=== PATIENT | male | born 1985 | race Hispanic/Latino ===

== ENCOUNTER 2019-11-17 05:49 | Day surgery (SDC) | payer OTHER ==
[2019-11-14 09:37] LABS: BASOPHILS % (AUTO) 0.7 % (0.0-5.0); EOSINOPHILS % (AUTO) 2.3 % (0.0-8.0); HEMATOCRIT 32.3 % (42-54); LYMPHOCYTES % (AUTO) 18.7 % (21.0-51.0); MEAN CORPUSCULAR HEMOGLOBIN 29.6 pg (27.0-33.0); MEAN CORPUSCULAR HGB CONC 29.7 g/dL (32.0-36.0); MEAN CORPUSCULAR VOLUME 99.7 fL (79-99); MONOCYTES % (AUTO) 8.9 % (3.0-13.0); NEUTROPHILS % (AUTO) 68.5 % (40.0-77.0); PLATELET COUNT (AUTO) 427 K/uL (130-400); RED BLOOD CELL COUNT(AUTO) 3.24 MIL/uL (4.50-6.20)
[2019-11-14 09:43] LABS: INR 0.97 (0.85-1.15); PARTIAL THROMBOPLASTIN TIME 28.1 SEC (26.3-35.5); PROTHROMBIN TIME 10.5 SEC (9.6-11.6)
[2019-11-14 09:46] LABS: ALBUMIN 3.6 g/dL (3.5-5.0); BILIRUBIN,TOTAL 0.4 mg/dL (0.2-1.0); CREATININE 7.7 mg/dL (0.5-1.5); TOTAL PROTEIN, SERUM 7.7 g/dL (6.0-8.3)
[2019-11-14 09:48] LABS: POTASSIUM 6.1 mmol/L (3.5-5.1)
--- NOTE | 2019-11-14 10:00 | NUR ---
LABS ALL ABNORMAL LABS REPORTED TO DR. BOWLING, ORDERS RECEIVED TO REPEAT K+ LEVEL DAY OF SURGERY
[2019-11-14 10:14] VITALS: BP 154/86
--- NOTE | 2019-11-14 11:11 | NUR ---
INSULIN PUMP PER DR. HUANG PATIENT TO DECREASE INSULIN PUMP TO 0.5 UNITS /HR NIGHT BEFORE SURGERY, PT WAS INSTRUCTED AND HE VERBALIZED UNDERSTANDING.
[2019-11-17] VITALS (17 sets, daily range): BP systolic 131–180; BP diastolic 73–94
[~2019-11-17] VITALS: Ht 172.7 cm; Wt 73.6 kg
[~2019-11-17 05:49] MED LIST: AMLO-257 PO; AMLO-258 PO; ASPI-1443 PO; FERR325T22 PO; FOLI1TAB85 PO; LISI-613 PO; NOVOLOG; OMEP20CA12 PO
[2019-11-17] MEDS ORDERED: SODIUM CHLORIDE 0.9% 1000ML 1,000 ML IV ONE (06:58)
[2019-11-17] MEDS ORDERED: KETAMINE 50MG/ML SYRINGE 50 MG/ML DISP.SYRIN IV ONE (07:26)
[2019-11-17] MEDS ORDERED: LIDOCAINE PF 2% 5ML ABBOJECT ONE (07:29)
[2019-11-17] MEDS ORDERED: ONDANSETRON HCL 4 MG/2 ML VIAL ONE ×2 (07:29→09:48)
[2019-11-17] MEDS ORDERED: DEXAMETHASONE SOD PHOSPHATE 10MG/ML 1ML VIAL ONE (07:29)
[2019-11-17] MEDS ORDERED: GLYCOPYRROLATE 1 MG/5 ML SYRINGE ONE (07:29)
[2019-11-17] MEDS ORDERED: PROPOFOL 10 MG/ML 20ML VIAL IV ONE (07:29)
[2019-11-17] MEDS ORDERED: FENTANYL CITRATE PF 50 MCG/1 ML 2ML VIAL ONE (07:29)
[2019-11-17] MEDS ORDERED: NEOSTIGMINE 5MG/5ML SYR IV ONE (07:30)
[2019-11-17] MEDS ORDERED: ROCURONIUM 10MG/1ML SYR 10 MG/ML ML ONE (07:30)
[2019-11-17] MEDS ORDERED: MIDAZOLAM HCL 1 MG/ML 2ML VIAL ONE (07:30)
--- NOTE | 2019-11-17 07:40 | NUR ---
PRE OP PT HAS OLD SCARS THROUGHOUT BODY, INSULIN PUMP PRESENT TO LEFT ABDOMEN, INSERTION SITE FREE FROM S/S OF INFECTION. PATIENT HAD INSULIN PUMP AT 0.8, HE CHANGED IT TO 0.5 UNITS.
[2019-11-17] MEDS ORDERED: NOREPINEPHRINE BITARTRATE 1 MG/1 ML ML IV ONE (08:07)
[2019-11-17] MEDS ORDERED: EPINEPHRINE 1 MG/ML AMPULE ONE (08:07)
[2019-11-17] MEDS ORDERED: CALC668T PO (08:11)
[2019-11-17] MEDS ORDERED: CEFUROXIME SODIUM 1.5 GM VIAL ONE (08:14)
--- NOTE | 2019-11-17 08:27 | NUR ---
POTENTIAL FOR INFECTION LEFT ARM SHAVED BY ARNALDO LINDER, FOLLOWED BY WIPING WITH NANCY.
--- NOTE | 2019-11-17 08:35 | NUR ---
FLUID INTAKE: IV NS 300CC INFUSED ORDERED PER SHEELA PEREZ CRNA.
[2019-11-17] MEDS ORDERED: EPHEDRINE SULFATE 50 MG/ML AMPULE ONE (09:01)
[2019-11-17] MEDS ORDERED: CEFAZOLIN SODIUM 1 GM VIAL ONE (09:05)
[2019-11-17] MEDS ORDERED: ACETAMINOPHEN 325 MG TAB PO PRN (10:45)
[2019-11-17] MEDS ORDERED: TRAMADOL HCL 50 MG TABLET PO PRN ×2 (10:45)
== END 2019-11-17 12:40 | disposition home or self-care (01) ==
LOC: DAH 05:49
PROVIDERS: ATTEND Thoracic Surgery (Cardiothoracic Vascular Surgery)
DX: I12.0 Hypertensive chronic kidney disease with stage 5 chronic kidney disease or end stage renal disease (principal); E11.22 Type 2 diabetes mellitus with diabetic chronic kidney disease; N18.6 End stage renal disease; G47.00 Insomnia, unspecified; Z79.82 Long term (current) use of aspirin; Z79.899 Other long term (current) drug therapy; Z87.891 Personal history of nicotine dependence; Z99.2 Dependence on renal dialysis; Z98.890 Other specified postprocedural states; Z82.49 Family history of ischemic heart disease and other diseases of the circulatory system; Z83.3 Family history of diabetes mellitus
CPT/HCPCS: 36415 ×2; 36821; 71045; 80053; 82948 ×2; 83036; 84132; 85025; 85610; 85730; 93005; A4213; A4215; A4221; A4222; A4223; A4452; A4649 ×4; A4663; A4930 ×2; A5120; C1713 ×2; J0171; J0690; J0697; J1100; J1644; J2001; J2250; J2405 ×2; J2704; J2710; J3010; J3490 ×4; J7030 ×2; J7040

== ENCOUNTER → 2020-08-09 | Outpatient (CLI) | payer OTHER ==
[~2020-08-09] MED LIST changes: +CALC668T PO; +GLYCOPYRROLATE 0.2 MG/ML 5 ML VIAL ONE; +PROPOFOL 10 MG/ML 20ML VIAL IV ONE; +SODIUM CHLORIDE 0.9% 1000ML 1,000 ML IV ONE
== END | disposition home or self-care (01) ==
LOC: DAH 10:00 → EDSTATUS 08-10 10:05
PROVIDERS: ATTEND Internal Medicine Gastroenterology
DX: Z01.818 Encounter for other preprocedural examination (principal); R10.11 Right upper quadrant pain; Z20.828 Contact with and (suspected) exposure to other viral communicable diseases; R12 Heartburn; R14.2 Eructation; R19.7 Diarrhea, unspecified; R19.4 Change in bowel habit; Z80.0 Family history of malignant neoplasm of digestive organs
CPT/HCPCS: 87426; J2704; J3490; J7030

== ENCOUNTER → 2021-01-25 | Outpatient (CLI) | payer OTHER ==
[~2021-01-25] MED LIST changes: -GLYCOPYRROLATE 0.2 MG/ML 5 ML VIAL ONE; +HONEY 1 APPL/ML TUBE TP ONE; +LIDOCAINE HCL 4% LTA SOL 4 ML VIAL TP ONE; -LISI-613 PO; +LISI20TA24 PO; -PROPOFOL 10 MG/ML 20ML VIAL IV ONE; -SODIUM CHLORIDE 0.9% 1000ML 1,000 ML IV ONE
== END | disposition home or self-care (01) ==
LOC: WHH 13:12
PROVIDERS: ATTEND Family Medicine
DX: E10.622 Type 1 diabetes mellitus with other skin ulcer (principal); L98.492 Non-pressure chronic ulcer of skin of other sites with fat layer exposed; S61.207A Unspecified open wound of left little finger without damage to nail, initial encounter; E10.22 Type 1 diabetes mellitus with diabetic chronic kidney disease; I13.11 Hypertensive heart and chronic kidney disease without heart failure, with stage 5 chronic kidney disease, or end stage renal disease; N18.6 End stage renal disease; Z99.2 Dependence on renal dialysis; X58.XXXA Exposure to other specified factors, initial encounter; Y93.89 Activity, other specified; Y92.89 Other specified places as the place of occurrence of the external cause; Y99.8 Other external cause status
CPT/HCPCS: 11042; 36415; 84134; 85651; 86140; 87070; A4450

== ENCOUNTER → 2021-02-01 | Outpatient (CLI) | payer OTHER | END | disposition home or self-care (01) | LOC: WHH 12:58 | PROVIDERS: ATTEND Family Medicine | DX: E10.621 Type 1 diabetes mellitus with foot ulcer (principal); L98.492 Non-pressure chronic ulcer of skin of other sites with fat layer exposed; S61.207D Unspecified open wound of left little finger without damage to nail, subsequent encounter; E10.22 Type 1 diabetes mellitus with diabetic chronic kidney disease; I13.11 Hypertensive heart and chronic kidney disease without heart failure, with stage 5 chronic kidney disease, or end stage renal disease; N18.6 End stage renal disease; Z99.2 Dependence on renal dialysis; X58.XXXD Exposure to other specified factors, subsequent encounter | CPT/HCPCS: 11042; 82948 ==

== ENCOUNTER → 2021-02-08 | Outpatient (CLI) | payer OTHER ==
[~2021-02-08] MED LIST changes: -HONEY 1 APPL/ML TUBE TP ONE
== END | disposition home or self-care (01) ==
LOC: WHH 13:21
PROVIDERS: ATTEND Family Medicine
DX: S61.201D Unspecified open wound of left index finger without damage to nail, subsequent encounter (principal); E10.621 Type 1 diabetes mellitus with foot ulcer; L98.492 Non-pressure chronic ulcer of skin of other sites with fat layer exposed; E10.22 Type 1 diabetes mellitus with diabetic chronic kidney disease; I13.11 Hypertensive heart and chronic kidney disease without heart failure, with stage 5 chronic kidney disease, or end stage renal disease; N18.6 End stage renal disease; Z99.2 Dependence on renal dialysis; X58.XXXD Exposure to other specified factors, subsequent encounter
CPT/HCPCS: 11042

== ENCOUNTER → 2021-02-15 | Outpatient (CLI) | payer OTHER | END | disposition home or self-care (01) | LOC: WHH 13:21 | PROVIDERS: ATTEND Family Medicine | DX: S61.201D Unspecified open wound of left index finger without damage to nail, subsequent encounter (principal); E10.622 Type 1 diabetes mellitus with other skin ulcer; L98.492 Non-pressure chronic ulcer of skin of other sites with fat layer exposed; E10.22 Type 1 diabetes mellitus with diabetic chronic kidney disease; I13.11 Hypertensive heart and chronic kidney disease without heart failure, with stage 5 chronic kidney disease, or end stage renal disease; N18.6 End stage renal disease; Z99.2 Dependence on renal dialysis; X58.XXXD Exposure to other specified factors, subsequent encounter | CPT/HCPCS: 11042; A4450 ==

== ENCOUNTER → 2021-03-01 | Outpatient (CLI) | payer OTHER | END | disposition home or self-care (01) | LOC: WHH 13:33 | PROVIDERS: ATTEND Family Medicine | DX: S61.201D Unspecified open wound of left index finger without damage to nail, subsequent encounter (principal); E10.622 Type 1 diabetes mellitus with other skin ulcer; L98.492 Non-pressure chronic ulcer of skin of other sites with fat layer exposed; E10.22 Type 1 diabetes mellitus with diabetic chronic kidney disease; I13.11 Hypertensive heart and chronic kidney disease without heart failure, with stage 5 chronic kidney disease, or end stage renal disease; N18.6 End stage renal disease; Z99.2 Dependence on renal dialysis; X58.XXXD Exposure to other specified factors, subsequent encounter | CPT/HCPCS: 11042; A6248 ==

== ENCOUNTER 2021-03-16 07:21 | Inpatient (IN) | payer OTHER ==
[2021-03-16] VITALS (28 sets, daily range): BP systolic 105–202; BP diastolic 46–103
[~2021-03-16] VITALS: Ht 172.7 cm; Wt 81.5 kg
[~2021-03-16 07:21] MED LIST changes: -LIDOCAINE HCL 4% LTA SOL 4 ML VIAL TP ONE
[2021-03-16 07:42] LABS: BASOPHILS % (AUTO) 0.4 % (0.0-5.0); EOSINOPHILS % (AUTO) 0.1 % (0.0-8.0); HEMATOCRIT 24.2 % (42-54); LYMPHOCYTES % (AUTO) 4.1 % (21.0-51.0); MEAN CORPUSCULAR HEMOGLOBIN 27.9 pg (27.0-33.0); MONOCYTES % (AUTO) 5.3 % (3.0-13.0); NEUTROPHILS % (AUTO) 88.8 % (40.0-77.0); NUCLEATED RED BLOOD CELLS 0.1 % (0.0-0.19); PLATELET COUNT (AUTO) 459 K/uL (130-400); RED BLOOD CELL COUNT(AUTO) 2.69 MIL/uL (4.50-6.20); RED CELL DISTRIBUTION WIDTH 19.9 % (11.0-15.5); WHITE BLOOD COUNT (AUTO) 20.2 K/uL (4.8-10.8)
[2021-03-16 08:14] LABS: CARBON DIOXIDE 20 mmol/L (21-32); CHLORIDE 95 mmol/L (101-111); GLOMERULAR FILTR. RATE CALC 4 mL/min (>60); GLUCOSE,RANDOM 298 mg/dL (70-105); POTASSIUM 5.1 mmol/L (3.5-5.1); SODIUM SERUM 136 mmol/L (136-145); UREA NITROGEN, BLOOD 57 mg/dL (7-18)
[2021-03-16 08:17] LABS: CREATININE 14.7 mg/dL (0.5-1.5)
[2021-03-16 08:39] LABS: ALANINE AMINOTRANSFERASE 16 U/L (12-78); ASPARTATE AMINOTRANSFERASE 25 U/L (10-37); BILIRUBIN,TOTAL 0.5 mg/dL (0.2-1.0); MYOGLOBIN 1078 ng/mL (10-92); TOTAL PROTEIN, SERUM 6.7 g/dL (6.0-8.3); TROPONIN I < 0.04 ng/mL (0.00-0.06)
[2021-03-16 08:42] LABS: CREATINE KINASE, TOTAL 834 U/L (21-232)
[2021-03-16] MEDS ORDERED: FUROSEMIDE 100MG VIAL IVP ONE (09:30)
[2021-03-16] MEDS ORDERED: CEFTRIAXONE 1G VIAL IVP ONE (09:30)
[2021-03-16] MEDS ORDERED: FUROSEMIDE 20MG VIAL ONE (09:46)
[2021-03-16] MEDS ORDERED: 0.9%NACL 100ML 100 ML ONE (09:47)
[2021-03-16] MEDS ORDERED: FUROSEMIDE 40MG VIAL ONE (09:47)
[2021-03-16] MEDS ORDERED: LACTULOSE 20 GM/30 ML UDCUP PO PRN (10:00)
[2021-03-16] MEDS ORDERED: DOXYCYCLINE 100MG+NS 250ML 250 ML IV SCH (10:00)
[2021-03-16] MEDS ORDERED: NITROGLYCERIN 0.4 MG SL TAB SL PRN (10:00)
[2021-03-16] MEDS ORDERED: ONDANSETRON 4MG INJ IV PRN (10:00)
[2021-03-16] MEDS ORDERED: VANCOMYCIN PROTOCOL PER PHARMACY IV PRN (10:00)
[2021-03-16] MEDS ORDERED: ACETAMINOPHEN 325 MG TAB PO PRN (10:00)
[2021-03-16 10:26] LABS: RETICULOCYTE % (AUTO) 2.6 % (0.42-2.23)
[2021-03-16] MEDS ORDERED: FAMOTIDINE 20MG VIAL IV SCH (10:27)
[2021-03-16] MEDS ORDERED: VANCOMYCIN KIT 250 ML IV SCH (10:28)
[2021-03-16 10:36] LABS: INR 1.07 (0.85-1.15); PROTHROMBIN TIME 11.6 SEC (9.6-11.6)
[2021-03-16 10:37] LABS: PARTIAL THROMBOPLASTIN TIME 30.4 SEC (26.3-35.5)
[2021-03-16 10:46] LABS: HEMOGLOBIN A1C 7.7 % (4.0-6.0)
[2021-03-16 10:47] LABS: % IRON SATURATION 13.6 % (30-44)
[2021-03-16 10:56] LABS: THYROID STIMULATING HORMONE 1.29 uIU/mL (0.36-3.74)
[2021-03-16 10:57] LABS: AMMONIA < 3 umol/L (11-32)
[2021-03-16] MEDS: MEROPENEM 500 MG VIAL IV SCH ×2 (11:33→18:00)
[2021-03-16] MEDS ORDERED: HYDRALAZINE 20MG/ML VIAL ONE (11:53)
[2021-03-16] MEDS: SODIUM CHLORIDE 3% FOR INHALATION 4 ML/AMP VIAL.NEB IH SCH ×2 (12:00→18:00)
[2021-03-16] MEDS ORDERED: MIDAZOLAM HCL 1 MG/ML 2ML VIAL ONE (12:17)
[2021-03-16] MEDS ORDERED: PROPOFOL 1000 MG/100 ML 100 ML IV ONE ×2 (12:18→16:59)
[2021-03-16] MEDS ORDERED: MORPHINE 4 MG SYG ONE (13:44)
[2021-03-16] MEDS ORDERED: VECURONIUM BROMIDE 10 MG ML IV ONE (14:08)
[2021-03-16 15:01] LABS: ABG BASE EXCESS -6.9 mmol/L (-2.0-3.0); ABG HCO3 18.5 mmol/L (21.0-28.0); ABG PCO2 37 mmHg (35-48)
[2021-03-16 15:15] LABS: ABG BASE EXCESS -6.8 mmol/L (-2.0-3.0); ABG HCO3 16.5 mmol/L (21.0-28.0); ABG OXYGEN SATURATION 97.1 % (95.0-99.0); ABG PCO2 25 mmHg (35-48)
[2021-03-16] MEDS ORDERED: ACETAMINOPHEN 650 MG SUPPOSITORY RC ONE (16:16)
[2021-03-16] MEDS ORDERED: FENTANYL 2500MCG+NS 250ML 250 ML IV ONE (16:37)
[2021-03-16 17:25] LABS: BASOPHILS % (AUTO) 0.2 % (0.0-5.0); LYMPHOCYTES % (AUTO) 2.1 % (21.0-51.0); MEAN CORPUSCULAR HEMOGLOBIN 28.6 pg (27.0-33.0); MEAN CORPUSCULAR HGB CONC 31.5 g/dL (32.0-36.0); MEAN CORPUSCULAR VOLUME 90.6 fL (79-99); MONOCYTES % (AUTO) 4.7 % (3.0-13.0); NEUTROPHILS % (AUTO) 91.2 % (40.0-77.0); NUCLEATED RED BLOOD CELLS 0.2 % (0.0-0.19); PLATELET COUNT (AUTO) 406 K/uL (130-400); RED BLOOD CELL COUNT(AUTO) 2.24 MIL/uL (4.50-6.20); RED CELL DISTRIBUTION WIDTH 19.5 % (11.0-15.5); WHITE BLOOD COUNT (AUTO) 21.5 K/uL (4.8-10.8)
[2021-03-16] MEDS: HEPARIN 5,000 UNIT VIAL SQ SCH (17:30)
[2021-03-16] MEDS: PHARMACY COMMUNICATION MISC SCH ×2 (17:30→21:30)
[2021-03-16 17:39] LABS: INR 1.1 (0.85-1.15); PROTHROMBIN TIME 11.9 SEC (9.6-11.6)
[2021-03-16 17:41] LABS: PARTIAL THROMBOPLASTIN TIME 28.6 SEC (26.3-35.5)
[2021-03-16 17:47] LABS: PHOSPHORUS 8.2 mg/dL (2.5-4.9)
[2021-03-16 17:55] LABS: CREATININE 15.3 mg/dL (0.5-1.5)
[2021-03-16] MEDS ORDERED: INSULIN HUMULIN R 100 UNIT/ML 3ML ONE (18:12)
[2021-03-16 18:19] LABS: HEMATOCRIT 20.3 % (42-54)
[2021-03-16 18:56] LABS: MAGNESIUM 1.9 mg/dL (1.80-2.40)
[2021-03-16] MEDS: LINEZOLID 600 MG/ISO-OSM 300 ML IV SCH (22:10)
[2021-03-17] VITALS (38 sets, daily range): BP systolic 101–159; BP diastolic 46–77
[2021-03-17] MEDS ORDERED: PROPOFOL 1000 MG/100 ML 100 ML IV ONE ×2 (00:01→04:17)
[2021-03-17] MEDS: FENTANYL 2500MCG+NS 250ML 250 ML IV SCH ×2 (00:28→12:12)
[2021-03-17] MEDS: PHARMACY COMMUNICATION MISC SCH ×2 (01:30→05:30)
[2021-03-17] MEDS: HEPARIN 5,000 UNIT VIAL SQ SCH ×3 (01:33→17:55)
[2021-03-17] MEDS: MEROPENEM 500 MG VIAL IV SCH ×2 (01:34→21:16)
[2021-03-17] MEDS: INSULIN HUMULIN R 100 UNIT/ML 3ML SQ SCH ×5 (01:34→21:00)
[2021-03-17 05:14] LABS: ABG BASE EXCESS 1.2 mmol/L (-2.0-3.0); ABG HCO3 20.4 mmol/L (21.0-28.0); ABG OXYGEN SATURATION 99.8 % (95.0-99.0); ABG PCO2 21 mmHg (35-48)
[2021-03-17 05:37] LABS: BASOPHILS % (AUTO) 0.3 % (0.0-5.0); EOSINOPHILS % (AUTO) 0.3 % (0.0-8.0); LYMPHOCYTES % (AUTO) 8.5 % (21.0-51.0); MEAN CORPUSCULAR HEMOGLOBIN 28.5 pg (27.0-33.0); MEAN CORPUSCULAR HGB CONC 32.7 g/dL (32.0-36.0); MONOCYTES % (AUTO) 7.6 % (3.0-13.0); NEUTROPHILS % (AUTO) 81.9 % (40.0-77.0); NUCLEATED RED BLOOD CELLS 0.2 % (0.0-0.19); PLATELET COUNT (AUTO) 410 K/uL (130-400); RED BLOOD CELL COUNT(AUTO) 2.53 MIL/uL (4.50-6.20); WHITE BLOOD COUNT (AUTO) 15.5 K/uL (4.8-10.8)
[2021-03-17] MEDS: LINEZOLID 600 MG/ISO-OSM 300 ML IV SCH ×2 (05:41→17:51)
[2021-03-17 05:58] LABS: ALBUMIN 1.7 g/dL (3.5-5.0); BILIRUBIN,TOTAL 0.3 mg/dL (0.2-1.0); PHOSPHORUS 6.5 mg/dL (2.5-4.9); POTASSIUM 3.9 mmol/L (3.5-5.1); TOTAL PROTEIN, SERUM 6.1 g/dL (6.0-8.3)
[2021-03-17 06:14] LABS: CREATININE 11.6 mg/dL (0.5-1.5)
[2021-03-17] MEDS: PROPOFOL 1000 MG/100 ML IV PRN ×4 (08:10→20:50)
[2021-03-17 08:34] LABS: ABG BASE EXCESS 1.3 mmol/L (-2.0-3.0); ABG HCO3 24.7 mmol/L (21.0-28.0); ABG OXYGEN SATURATION 99.6 % (95.0-99.0); ABG PCO2 36 mmHg (35-48)
[2021-03-17] MEDS ORDERED: RENAL DOSE IV SCH (09:30)
[2021-03-17] MEDS ORDERED: EPOETIN ALFA-EPBX (ESRD) 10,000 UNIT/ML VIAL SQ SCH (09:30)
[2021-03-17] MEDS ORDERED: PHARMACY COMMUNICATION MISC SCH (09:30)
[2021-03-17] MEDS ORDERED: COMPOUND IV MISC 1 EACH IVSOLN MISC PRN (10:00)
[2021-03-17 15:51] LABS: POTASSIUM 4.4 mmol/L (3.5-5.1)
[2021-03-17 16:00] LABS: CREATININE 11.9 mg/dL (0.5-1.5)
[2021-03-17] MEDS: INSULIN GLARGINE 100 UNITS/ML 10 ML VIAL SQ SCH (21:00)
[2021-03-18] VITALS (45 sets, daily range): BP systolic 130–233; BP diastolic 57–117
[2021-03-18] MEDS: PROPOFOL 1000 MG/100 ML IV PRN ×2 (01:14→05:13)
[2021-03-18] MEDS: HEPARIN 5,000 UNIT VIAL SQ SCH ×3 (01:15→16:51)
[2021-03-18 04:04] LABS: ALBUMIN 1.4 g/dL (3.5-5.0); BILIRUBIN,TOTAL 0.4 mg/dL (0.2-1.0); POTASSIUM 4.9 mmol/L (3.5-5.1); TOTAL PROTEIN, SERUM 5.4 g/dL (6.0-8.3)
[2021-03-18 04:06] LABS: CREATININE 12.9 mg/dL (0.5-1.5)
[2021-03-18] MEDS: LINEZOLID 600 MG/ISO-OSM 300 ML IV SCH ×2 (05:12→16:51)
[2021-03-18 05:13] LABS: BASOPHILS % (AUTO) 0.7 % (0.0-5.0); EOSINOPHILS % (AUTO) 5.3 % (0.0-8.0); LYMPHOCYTES % (AUTO) 20.5 % (21.0-51.0); MEAN CORPUSCULAR HEMOGLOBIN 28.5 pg (27.0-33.0); MEAN CORPUSCULAR HGB CONC 31.4 g/dL (32.0-36.0); MEAN CORPUSCULAR VOLUME 90.9 fL (79-99); NEUTROPHILS % (AUTO) 64.1 % (40.0-77.0); PLATELET COUNT (AUTO) 393 K/uL (130-400); RED BLOOD CELL COUNT(AUTO) 2.42 MIL/uL (4.50-6.20); RED CELL DISTRIBUTION WIDTH 18.5 % (11.0-15.5); WHITE BLOOD COUNT (AUTO) 9.7 K/uL (4.8-10.8)
[2021-03-18] MEDS: FENTANYL 2500MCG+NS 250ML 250 ML IV SCH (05:14)
[2021-03-18] MEDS: INSULIN HUMULIN R 100 UNIT/ML 3ML SQ SCH ×4 (06:50→21:14)
[2021-03-18 07:16] LABS: HEPATITIS Bs ANTIGEN SCREEN P Negative (Negative)
[2021-03-18] MEDS: ZINC SULFATE 220 CAPSULE PO SCH (08:08)
[2021-03-18] MEDS: ASCORBIC ACID 500 MG TAB PO SCH (08:08)
[2021-03-18] MEDS ORDERED: HYDRALAZINE 20MG/ML VIAL ONE (08:18)
[2021-03-18] MEDS ORDERED: HYDRALAZINE 20MG/ML VIAL IV SCH (08:30)
[2021-03-18] MEDS ORDERED: 0.9%NACL 1000ML 1,000 ML IV ONE (09:16)
[2021-03-18] MEDS: LABETALOL 20MG VIAL IV PRN ×2 (10:00→14:31)
[2021-03-18] MEDS: IRON SUCROSE COMPLEX 100 MG in 0.9%NACL 50ML 50 ML IV SCH (10:52)
[2021-03-18] MEDS: LABETALOL HCL 200 MG TABLET PO SCH ×2 (11:56→21:08)
[2021-03-18] MEDS: CLONIDINE HCL 0.1 MG TABLET PO SCH ×3 (11:58→21:08)
[2021-03-18] MEDS ORDERED: PANT40TA54 PO (12:56)
[2021-03-18] MEDS ORDERED: GABA-529 PO (12:56)
[2021-03-18] MEDS ORDERED: LISI40TA9 PO (12:56)
[2021-03-18] MEDS ORDERED: FURO40TA7 PO (12:56)
[2021-03-18] MEDS ORDERED: IRON1CAP3 PO (12:56)
[2021-03-18] MEDS ORDERED: AMLO-258 PO (12:56)
[2021-03-18] MEDS ORDERED: CALC0.5C11 PO (12:56)
[2021-03-18] MEDS ORDERED: METO50TA18 PO (12:56)
[2021-03-18] MEDS ORDERED: FAMO40TA7 PO (12:56)
[2021-03-18 14:02] LABS: HEMATOCRIT 33.7 % (42-54)
[2021-03-18] MEDS: GABAPENTIN 100 MG CAPSULE PO SCH ×2 (16:50→21:07)
[2021-03-18] MEDS: MEROPENEM 500 MG VIAL IV SCH (21:06)
[2021-03-18] MEDS: CALCITRIOL 0.25 MCG CAP PO SCH (21:07)
[2021-03-18] MEDS: FUROSEMIDE 40 MG TABLET PO SCH (21:07)
[2021-03-18] MEDS: INSULIN GLARGINE 100 UNITS/ML 10 ML VIAL SQ SCH (21:15)
[2021-03-18] MEDS: ACETAMINOPHEN 325 MG TAB PO PRN (23:35)
[2021-03-19] MEDS: HEPARIN 5,000 UNIT VIAL SQ SCH ×3 (01:38→16:46)
[2021-03-19 04:00] VITALS: BP 146/53
[2021-03-19] MEDS: LINEZOLID 600 MG/ISO-OSM 300 ML IV SCH ×2 (05:29→17:32)
[2021-03-19 05:50] LABS: BASOPHILS % (AUTO) 0.5 % (0.0-5.0); EOSINOPHILS % (AUTO) 3.9 % (0.0-8.0); HEMATOCRIT 29.8 % (42-54); LYMPHOCYTES % (AUTO) 7.9 % (21.0-51.0); MEAN CORPUSCULAR HEMOGLOBIN 28.6 pg (27.0-33.0); MEAN CORPUSCULAR HGB CONC 33.2 g/dL (32.0-36.0); MEAN CORPUSCULAR VOLUME 86.1 fL (79-99); MONOCYTES % (AUTO) 9.9 % (3.0-13.0); NEUTROPHILS % (AUTO) 76.9 % (40.0-77.0); PLATELET COUNT (AUTO) 381 K/uL (130-400); RED BLOOD CELL COUNT(AUTO) 3.46 MIL/uL (4.50-6.20); RED CELL DISTRIBUTION WIDTH 17.2 % (11.0-15.5); WHITE BLOOD COUNT (AUTO) 11.1 K/uL (4.8-10.8)
[2021-03-19 06:12] LABS: ALBUMIN 1.6 g/dL (3.5-5.0); BILIRUBIN,TOTAL 0.6 mg/dL (0.2-1.0); POTASSIUM 3.4 mmol/L (3.5-5.1); TOTAL PROTEIN, SERUM 6.3 g/dL (6.0-8.3)
[2021-03-19 06:15] LABS: CREATININE 10.7 mg/dL (0.5-1.5)
[2021-03-19] MEDS: ACETAMINOPHEN 325 MG TAB PO PRN ×2 (06:31→10:42)
[2021-03-19] MEDS: INSULIN HUMULIN R 100 UNIT/ML 3ML SQ SCH ×4 (06:36→21:00)
[2021-03-19 08:00] VITALS: BP 162/90
[2021-03-19] MEDS: ZINC SULFATE 220 CAPSULE PO SCH (08:33)
[2021-03-19] MEDS: CALCITRIOL 0.25 MCG CAP PO SCH ×2 (08:33→21:34)
[2021-03-19] MEDS: ASCORBIC ACID 500 MG TAB PO SCH (08:34)
[2021-03-19] MEDS: GABAPENTIN 100 MG CAPSULE PO SCH ×4 (08:34→21:34)
[2021-03-19] MEDS: FUROSEMIDE 40 MG TABLET PO SCH ×2 (08:34→21:35)
[2021-03-19] MEDS: CLONIDINE HCL 0.1 MG TABLET PO SCH ×4 (08:35→21:35)
[2021-03-19] MEDS: LABETALOL HCL 200 MG TABLET PO SCH ×2 (08:37→21:35)
[2021-03-19] MEDS: IRON SUCROSE COMPLEX 100 MG in 0.9%NACL 50ML 50 ML IV SCH (09:00)
[2021-03-19 11:31] LABS: APPEARANCE,URINE Clear (CLEAR); BILIRUBIN,URINE Negative (NEGATIVE); COLOR,URINE Yellow (YELLOW); GLUCOSE, URINE (UA) 500 mg/dL (NEGATIVE); KETONES,URINE Trace mg/dL (NEGATIVE); LEUKOCYTE ESTERASE ,URINE Trace (NEGATIVE); NITRATE,URINE Negative (NEGATIVE); OCCULT BLOOD,URINE Moderate (NEGATIVE); PH,URINE 7.5 (5.0-8.0); PROTEIN,URINE >=1000 mg/dL (NEGATIVE); UROBILINOGEN,URINE 0.2 mg/dL (0.2-1.0)
[2021-03-19 11:39] LABS: AMPHET/METH SCREEN,URINE NEGATIVE (NEGATIVE); BARBITURATE SCREEN, URINE NEGATIVE (NEGATIVE); BENZODIAZEPINES SCREEN,URINE NEGATIVE (NEGATIVE); CANNABINOID SCREEN,URINE NEGATIVE (NEGATIVE); COCAINE SCREEN,URINE POSITIVE (NEGATIVE); OPIATE SCREEN,URINE NEGATIVE (NEGATIVE); PHENCYCLIDINE SCREEN,URINE NEGATIVE (NEGATIVE)
[2021-03-19 11:56] LABS: BACTERIA,URINE Few /HPF (None Seen); SQUAMOUS EPITHELIAL CELL,UR Few /HPF (0-2)
[2021-03-19 12:00] VITALS: BP 159/85
[2021-03-19 16:00] VITALS: BP 168/88
[2021-03-19] MEDS: ACETAMINOPHEN WITH CODEINE 1 TAB TAB PO PRN (16:48)
[2021-03-19 20:00] VITALS: BP 168/87
[2021-03-19] MEDS: METOPROLOL TARTRATE 25 MG TAB PO SCH (21:34)
[2021-03-19] MEDS: TRAZODONE HCL 50 MG TAB PO SCH (21:35)
[2021-03-19] MEDS: MEROPENEM 500 MG VIAL IV SCH (21:36)
[2021-03-19] MEDS: INSULIN GLARGINE 100 UNITS/ML 10 ML VIAL SQ SCH (21:37)
[2021-03-20] VITALS (7 sets, daily range): BP systolic 156–179; BP diastolic 80–89
[2021-03-20] MEDS: ACETAMINOPHEN WITH CODEINE 1 TAB TAB PO PRN (00:38)
[2021-03-20] MEDS: HEPARIN 5,000 UNIT VIAL SQ SCH ×3 (01:46→18:49)
[2021-03-20] MEDS: LINEZOLID 600 MG/ISO-OSM 300 ML IV SCH ×2 (05:31→18:49)
[2021-03-20] MEDS: INSULIN HUMULIN R 100 UNIT/ML 3ML SQ SCH ×4 (06:38→21:39)
[2021-03-20 06:51] LABS: BASOPHILS % (AUTO) 0.6 % (0.0-5.0); EOSINOPHILS % (AUTO) 7.5 % (0.0-8.0); HEMATOCRIT 27.6 % (42-54); LYMPHOCYTES % (AUTO) 16.6 % (21.0-51.0); MEAN CORPUSCULAR HEMOGLOBIN 28.3 pg (27.0-33.0); MEAN CORPUSCULAR HGB CONC 32.2 g/dL (32.0-36.0); MEAN CORPUSCULAR VOLUME 87.9 fL (79-99); MONOCYTES % (AUTO) 8.8 % (3.0-13.0); NEUTROPHILS % (AUTO) 64.5 % (40.0-77.0); PLATELET COUNT (AUTO) 334 K/uL (130-400); RED BLOOD CELL COUNT(AUTO) 3.14 MIL/uL (4.50-6.20); RED CELL DISTRIBUTION WIDTH 16.7 % (11.0-15.5); WHITE BLOOD COUNT (AUTO) 9.9 K/uL (4.8-10.8)
[2021-03-20 07:02] LABS: POTASSIUM 3.7 mmol/L (3.5-5.1)
[2021-03-20 07:20] LABS: CREATININE 12.5 mg/dL (0.5-1.5)
[2021-03-20] MEDS: CALCITRIOL 0.25 MCG CAP PO SCH ×2 (08:47→20:19)
[2021-03-20] MEDS: METOPROLOL TARTRATE 25 MG TAB PO SCH ×2 (08:47→20:16)
[2021-03-20] MEDS: AMLODIPINE 5 MG TAB PO SCH (08:47)
[2021-03-20] MEDS: FUROSEMIDE 40 MG TABLET PO SCH ×2 (08:48→20:17)
[2021-03-20] MEDS: LABETALOL HCL 200 MG TABLET PO SCH ×2 (08:48→20:19)
[2021-03-20] MEDS: GABAPENTIN 100 MG CAPSULE PO SCH ×4 (08:48→20:16)
[2021-03-20] MEDS: ASCORBIC ACID 500 MG TAB PO SCH (08:48)
[2021-03-20] MEDS: ZINC SULFATE 220 CAPSULE PO SCH (08:48)
[2021-03-20] MEDS: CLONIDINE HCL 0.1 MG TABLET PO SCH ×3 (08:49→20:19)
[2021-03-20] MEDS ORDERED: HYDROXYZINE 25 MG TABLET PO PRN (13:00)
[2021-03-20] MEDS ORDERED: LISINOPRIL 40 MG TABLET PO SCH (14:30)
[2021-03-20] MEDS: IRON SUCROSE COMPLEX 100 MG in 0.9%NACL 50ML 50 ML IV SCH (14:46)
[2021-03-20] MEDS: MEROPENEM 500 MG VIAL IV SCH (20:16)
[2021-03-20] MEDS: TRAZODONE HCL 50 MG TAB PO SCH (20:17)
[2021-03-20] MEDS: INSULIN GLARGINE 100 UNITS/ML 10 ML VIAL SQ SCH (21:40)
[2021-03-21] VITALS (21 sets, daily range): BP systolic 142–191; BP diastolic 71–100
[2021-03-21] MEDS: HEPARIN 5,000 UNIT VIAL SQ SCH ×3 (01:34→18:07)
[2021-03-21] MEDS: INSULIN HUMULIN R 100 UNIT/ML 3ML SQ SCH ×4 (06:32→21:20)
[2021-03-21] MEDS ORDERED: LISINOPRIL 40 MG TABLET PO SCH (09:00)
[2021-03-21] MEDS: GABAPENTIN 100 MG CAPSULE PO SCH ×4 (09:05→21:22)
[2021-03-21] MEDS: CALCITRIOL 0.25 MCG CAP PO SCH ×2 (09:06→21:22)
[2021-03-21] MEDS: LABETALOL HCL 200 MG TABLET PO SCH ×2 (09:07→21:30)
[2021-03-21] MEDS: METOPROLOL TARTRATE 25 MG TAB PO SCH ×2 (09:07→21:23)
[2021-03-21] MEDS: ZINC SULFATE 220 CAPSULE PO SCH (09:08)
[2021-03-21] MEDS: CLONIDINE HCL 0.1 MG TABLET PO SCH ×3 (09:08→21:23)
[2021-03-21] MEDS: ASCORBIC ACID 500 MG TAB PO SCH (09:09)
[2021-03-21] MEDS: FUROSEMIDE 40 MG TABLET PO SCH ×2 (09:09→21:22)
[2021-03-21] MEDS: AMLODIPINE 5 MG TAB PO SCH (09:09)
[2021-03-21] MEDS: IRON SUCROSE COMPLEX 100 MG in 0.9%NACL 50ML 50 ML IV SCH (11:14)
[2021-03-21] MEDS ORDERED: INSLAN SQ (11:26)
[2021-03-21] MEDS ORDERED: LEVO750T46 PO (11:26)
[2021-03-21 12:45] LABS: HEMATOCRIT 31.5 % (42-54); MEAN CORPUSCULAR HEMOGLOBIN 28.6 pg (27.0-33.0); MEAN CORPUSCULAR HGB CONC 32.7 g/dL (32.0-36.0); MEAN CORPUSCULAR VOLUME 87.5 fL (79-99); PLATELET COUNT (AUTO) 383 K/uL (130-400); RED CELL DISTRIBUTION WIDTH 16.5 % (11.0-15.5); WHITE BLOOD COUNT (AUTO) 9.3 K/uL (4.8-10.8)
[2021-03-21 13:01] LABS: POTASSIUM 4.7 mmol/L (3.5-5.1)
[2021-03-21 13:07] LABS: CREATININE 14.3 mg/dL (0.5-1.5)
[2021-03-21 13:11] LABS: BASOPHILS % (MANUAL) 2 % (0-2); EOSINOPHILS % (MANUAL) 8 % (1-6); LYMPHOCYTES % (MANUAL) 14 % (22-44); MAN.DIFF COMMENT-IMPRESSION MANUAL DIFFERENTIAL; MONOCYTES % (MANUAL) 10 % (2-9); PLATELET MORPHOLOGY COMMENT ADEQUATE; SEGMENTED NEUTROPHILS % 66 % (40-70)
[2021-03-21] MEDS: ACETAMINOPHEN 325 MG TAB PO PRN (18:47)
[2021-03-21] MEDS: TRAZODONE HCL 50 MG TAB PO SCH (21:00)
[2021-03-21] MEDS: INSULIN GLARGINE 100 UNITS/ML 10 ML VIAL SQ SCH (21:18)
[2021-03-21] MEDS: MEROPENEM 500 MG VIAL IV SCH (21:24)
== END 2021-03-21 21:50 | disposition home or self-care (01) | DRG 871 ==
LOC: EDH 07:21 → EDHIP 09:58 → 2CH 23:22 → 4BH 03-18 19:28
PROVIDERS: ADMIT Internal Medicine; ATTEND Internal Medicine
PROC: 30233N1 Transfusion of Nonautologous Red Blood Cells into Peripheral Vein, Percutaneous Approach (ICD-10-PCS; principal; 2021-03-16)
PROC: 5A09357 Assistance with Respiratory Ventilation, Less than 24 Consecutive Hours, Continuous Positive Airway Pressure (ICD-10-PCS; 2021-03-16)
PROC: 5A1945Z Respiratory Ventilation, 24-96 Consecutive Hours (ICD-10-PCS; 2021-03-16)
PROC: 0BH17EZ Insertion of Endotracheal Airway into Trachea, Via Natural or Artificial Opening (ICD-10-PCS; 2021-03-16)
PROC: 5A09357 Assistance with Respiratory Ventilation, Less than 24 Consecutive Hours, Continuous Positive Airway Pressure (ICD-10-PCS; 2021-03-18)
PROC: 5A1D70Z Performance of Urinary Filtration, Intermittent, Less than 6 Hours Per Day (ICD-10-PCS; 2021-03-19)
DX: A41.9 Sepsis, unspecified organism (principal); J15.6 Pneumonia due to other Gram-negative bacteria; J80 Acute respiratory distress syndrome; N18.6 End stage renal disease; M62.82 Rhabdomyolysis; I13.2 Hypertensive heart and chronic kidney disease with heart failure and with stage 5 chronic kidney disease, or end stage renal disease; E87.1 Hypo-osmolality and hyponatremia; H33.21 Serous retinal detachment, right eye; I50.9 Heart failure, unspecified; Z20.822 Contact with and (suspected) exposure to COVID-19; E87.5 Hyperkalemia; E10.22 Type 1 diabetes mellitus with diabetic chronic kidney disease; D63.1 Anemia in chronic kidney disease; E10.319 Type 1 diabetes mellitus with unspecified diabetic retinopathy without macular edema; E87.6 Hypokalemia; F14.10 Cocaine abuse, uncomplicated; F32.9 Major depressive disorder, single episode, unspecified; F43.20 Adjustment disorder, unspecified; L98.499 Non-pressure chronic ulcer of skin of other sites with unspecified severity; E10.621 Type 1 diabetes mellitus with foot ulcer; Z99.2 Dependence on renal dialysis; Z79.4 Long term (current) use of insulin; Z87.891 Personal history of nicotine dependence; Z87.11 Personal history of peptic ulcer disease; Z83.3 Family history of diabetes mellitus; Z80.0 Family history of malignant neoplasm of digestive organs; Z82.49 Family history of ischemic heart disease and other diseases of the circulatory system; Z83.2 Family history of diseases of the blood and blood-forming organs and certain disorders involving the immune mechanism
CPT/HCPCS: 31500; 36415; 36600; 71045; 71250; 80048; 80053; 80305; 81001; 82140; 82270; 82435; 82550; 82728; 82803; 82947; 82948; 83036; 83540; 83550; 83605; 83735; 83874; 83880; 84100; 84132; 84145; 84295; 84443; 84484; 85014; 85018; 85025; 85045; 85378; 85610; 85730; 86140; 86704; 86706; 86850; 86900; 86901; 86922; 86923; 87040; 87088; 87340; 87426; 87637; 87804; 90935; 93005; 93306; 93356; 94002; 94003; 94660; 99291; G0378; J0360; J0696; J1644; J1756; J1815; J1940; J2020; J2185; J2250; J2270; J2704; J3010; J3490; J7030; P9016

== ENCOUNTER 2021-11-19 18:34 | Inpatient (IN) | payer OTHER, MEDICARE ==
[~2021-11-19] VITALS: Ht 172.7 cm; Wt 75.3 kg
[~2021-11-19 18:34] MED LIST changes: -AMLO-257 PO; -ASPI-1443 PO; +CALC0.5C11 PO; -CALC668T PO; +FAMO40TA7 PO; -FERR325T22 PO; -FOLI1TAB85 PO; +FURO40TA7 PO; +GABA-529 PO; +INSLAN SQ; +IRON1CAP3 PO; +LEVO750T46 PO; -LISI20TA24 PO; +LISI40TA9 PO; +METO50TA18 PO; -NOVOLOG; -OMEP20CA12 PO; +PANT40TA54 PO
[2021-11-19 19:00] VITALS: BP 207/107
[2021-11-19] MEDS ORDERED: 0.9%NACL 1000ML 1,000 ML IV ONE (19:00)
[2021-11-19 19:14] LABS: BASOPHILS % (AUTO) 0.4 % (0.0-5.0); EOSINOPHILS % (AUTO) 0.4 % (0.0-8.0); HEMATOCRIT 28.6 % (42-54); LYMPHOCYTES % (AUTO) 4.3 % (21.0-51.0); MEAN CORPUSCULAR HGB CONC 31.8 g/dL (32.0-36.0); MEAN CORPUSCULAR VOLUME 91.1 fL (79-99); MONOCYTES % (AUTO) 2.6 % (3.0-13.0); NEUTROPHILS % (AUTO) 90.4 % (40.0-77.0); PLATELET COUNT (AUTO) 460 K/uL (130-400); RED BLOOD CELL COUNT(AUTO) 3.14 MIL/uL (4.50-6.20); RED CELL DISTRIBUTION WIDTH 16.4 % (11.0-15.5); WHITE BLOOD COUNT (AUTO) 13.8 K/uL (4.8-10.8)
[2021-11-19 19:35] LABS: ALBUMIN 2.8 g/dL (3.5-5.0); BILIRUBIN,TOTAL 0.4 mg/dL (0.2-1.0); POTASSIUM 3.2 mmol/L (3.5-5.1); TOTAL PROTEIN, SERUM 7.6 g/dL (6.0-8.3)
[2021-11-19 19:41] LABS: CREATININE 14.5 mg/dL (0.5-1.5)
[2021-11-19] MEDS ORDERED: DEXTROSE 50%-WATER 50 ML DISP.SYRIN IV ONE (20:30)
[2021-11-19] MEDS ORDERED: ONDANSETRON 4MG INJ ONE (21:29)
[2021-11-19] MEDS ORDERED: ONDANSETRON 4MG INJ IVP ONE (21:30)
[2021-11-19 21:53] LABS: APPEARANCE,URINE Clear (CLEAR); BILIRUBIN,URINE Negative (NEGATIVE); COLOR,URINE Yellow (YELLOW); GLUCOSE, URINE (UA) 250 mg/dL (NEGATIVE); KETONES,URINE Negative (NEGATIVE); LEUKOCYTE ESTERASE ,URINE Negative (NEGATIVE); NITRATE,URINE Negative (NEGATIVE); OCCULT BLOOD,URINE Trace (NEGATIVE); PROTEIN,URINE >=1000 mg/dL (NEGATIVE); UROBILINOGEN,URINE 0.2 mg/dL (0.2-1.0)
[2021-11-19] MEDS ORDERED: ACETAMINOPHEN 325 MG TAB PO PRN (22:00)
[2021-11-19] MEDS ORDERED: CLONIDINE HCL 0.1 MG TABLET PO ONE (22:00)
[2021-11-19] MEDS ORDERED: CLONIDINE HCL 0.1 MG TABLET PO PRN (22:00)
[2021-11-19] MEDS ORDERED: LIDOCAINE HCL-MPF 1% 2ML VIAL IV PRN (22:00)
[2021-11-19] MEDS ORDERED: DEXTROSE 10%-WATER 1,000 ML IV SCH (22:00)
[2021-11-19] MEDS ORDERED: ONDANSETRON 4MG INJ IV PRN (22:00)
[2021-11-19] MEDS ORDERED: POTASSIUM CHLORIDE 10MEQ/100ML 100 ML IV PRN (22:00)
[2021-11-19 22:02] LABS: BACTERIA,URINE Few /HPF (None Seen); MUCUS,URINE Few LPF (None Seen); SQUAMOUS EPITHELIAL CELL,UR 0-2 /HPF (0-2)
[2021-11-20] MEDS ORDERED: HEPARIN 5,000 UNIT VIAL SQ SCH (09:00)
[2021-11-21] MEDS ORDERED: FAMOTIDINE 20MG TAB PO SCH (09:00)
== END 2021-11-19 22:53 | disposition left against medical advice (07) | DRG 304 ==
LOC: EDH 18:34 → EDHIP 21:47
PROVIDERS: ADMIT Internal Medicine; ATTEND Internal Medicine
DX: I16.0 Hypertensive urgency (principal); N18.6 End stage renal disease; E11.649 Type 2 diabetes mellitus with hypoglycemia without coma; I12.0 Hypertensive chronic kidney disease with stage 5 chronic kidney disease or end stage renal disease; E87.6 Hypokalemia; D72.829 Elevated white blood cell count, unspecified; Z20.822 Contact with and (suspected) exposure to COVID-19; E11.22 Type 2 diabetes mellitus with diabetic chronic kidney disease; Z80.0 Family history of malignant neoplasm of digestive organs; Z99.2 Dependence on renal dialysis; F17.210 Nicotine dependence, cigarettes, uncomplicated; D64.9 Anemia, unspecified; Z53.29 Procedure and treatment not carried out because of patient's decision for other reasons
CPT/HCPCS: 36415; 71045; 80053; 81001; 82948; 84484; 85025; 87040; 93005; G0378; J2405; J7030

== ENCOUNTER → 2021-12-07 | Outpatient (CLI) | payer OTHER, MEDICARE | END | disposition home or self-care (01) | LOC: RAH 12:42 | PROVIDERS: ATTEND Internal Medicine Cardiovascular Disease | DX: Z01.810 Encounter for preprocedural cardiovascular examination (principal); R00.2 Palpitations; I34.8 Other nonrheumatic mitral valve disorders; I11.9 Hypertensive heart disease without heart failure; E11.9 Type 2 diabetes mellitus without complications | CPT/HCPCS: 93306 ==